=== PATIENT | male | born 1945 | race Caucasian/White ===

== ENCOUNTER 2025-04-30 15:42 | Emergency (ER) | payer MEDICARE, OTHER ==
[2025-04-30 17:26] LABS: BASOPHILS ABSOLUTE AUTO 0.03 K/uL (0.00-0.10); BASOPHILS PERCENT AUTO 0.5 % (0.1-1.3); EOSINOPHILS ABSOLUTE AUTO 0.22 K/uL (0.00-0.40); EOSINOPHILS PERCENT AUTO 3.5 % (0.0-5.4); IMMATURE GRAN PERCENT AUTO 0.2 % (0.0-0.7); LYMPHOCYTES ABSOLUTE AUTO 1.21 K/uL (0.8-3.3); LYMPHOCYTES PERCENT AUTO 19.5 % (11.4-47.7); MONOCYTES ABSOLUTE AUTO 0.63 K/uL (0.20-0.90); MONOCYTES PERCENT AUTO 10.2 % (3.3-12.6); NEUTROPHILS ABSOLUTE AUTO 4.10 K/uL (1.0-7.6); NEUTROPHILS PERCENT AUTO 66.1 % (40.0-78.1); PLATELET COUNT,PLT 284 K/uL (130-375); RED BLOOD CELL COUNT 4.03 M/uL (4.14-5.76); WHITE BLOOD CELL COUNT,WBC 6.2 K/uL (3.2-11.0)
[2025-04-30 17:29] LABS: IMMATURE GRAN ABSOLUTE AUTO 0.01 K/uL (0.00-0.23)
[2025-04-30 17:56] LABS: A/G RATIO 1.1 (1.2-2.2); ALANINE AMINOTRANSFERASE,ALT 31 U/L (12-78); ASPARTATE AMNIOTRANSFERASE,AST 28 U/L (15-37); BILIRUBIN TOTAL 0.5 mg/dL (0.2-1.0); BLOOD UREA NITROGEN,BUN 20 mg/dL (7-18); CARBON DIOXIDE,CO2 26 mmol/L (21-32); CHLORIDE,CL 107 mmol/L (100-108); CREATININE 0.8 mg/dL (0.8-1.3); ESTIMATED GFR 90 mL/min (>60); GLUCOSE RANDOM 95 mg/dL (74-106); POTASSIUM,K 4.2 mmol/L (3.6-5.2); PROTEIN TOTAL,TP 6.9 g/dL (6.4-8.2); SODIUM,NA 142 mmol/L (140-148); T4 FREE 0.46 ng/dL (0.76-1.46); TSH ULTRASENSITIVE 11.460 uIU/mL (0.358-3.740)
== END 2025-04-30 18:45 | disposition home or self-care (01) ==
LOC: JP.ED 15:42
DX: E03.9 Hypothyroidism, unspecified (principal); I10 Essential (primary) hypertension; Z79.899 Other long term (current) drug therapy; Z87.891 Personal history of nicotine dependence
CPT/HCPCS: 36415; 80053; 84439; 84443; 85025; 99283